=== PATIENT | female | born 1965 | race Caucasian/White ===

== ENCOUNTER → 2025-05-30 12:24 | Outpatient (CLI) | payer OTHER, SELFPAY ==
--- NOTE | 2025-05-30 12:26 | DI.RAD.S_ITS ---
PROCEDURE: XR LUMBAR SPINE MIN 4V INDICATIONS: Right L4-5 radiculopathy TECHNIQUE: 5 views of the lumbar spine were acquired, including bilateral oblique views. COMPARISON: None. FINDINGS: Bones: 5 nonrib-bearing vertebrae are present. There is normal bony alignment. No vertebral body compression fractures. No suspicious bony lesions. Mild to moderate, multilevel degenerative disc disease and lower lumbar facet arthrosis. Soft tissues: Overlying bowel gas pattern is normal. No suspicious soft tissue calcifications. Oblique images: No pars defects. IMPRESSION: Mild to moderate, multilevel degenerative disc disease and lower lumbar facet arthrosis. Dictated by: Srinivas Argueta M.D. on 05/31/2025 at 8:48 Approved by: Srinivas Argueta M.D. on 05/31/2025 at 8:49
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
== END ==
PROVIDERS: PCP Registered Nurse; Referring Provider Physical Medicine & Rehabilitation; Visit Provider Physical Medicine & Rehabilitation
DX: S13.4XXA Sprain of ligaments of cervical spine, initial encounter (principal); M47.812 Spondylosis without myelopathy or radiculopathy, cervical region; M47.26 Other spondylosis with radiculopathy, lumbar region; M51.16 Intervertebral disc disorders with radiculopathy, lumbar region; M50.30 Other cervical disc degeneration, unspecified cervical region; F43.10 Post-traumatic stress disorder, unspecified; Z87.828 Personal history of other (healed) physical injury and trauma
CPT/HCPCS: 72050; 72110

== ENCOUNTER → 2025-06-04 18:33 | Outpatient (CLI) | payer OTHER, SELFPAY ==
--- NOTE | 2025-06-04 18:35 | DI.MRI.S_ITS ---
PROCEDURE: MR LUMBAR SPINE WO CON INDICATIONS: Right L4-5 radiculopathy TECHNIQUE: Noncontrast sagittal T1 spin echo and T2 fast echo, sagittal STIR, and T2 fast spin echo through the lumbar spine. In cases with scoliosis, additional coronal T2 fast spin echo may be performed. COMPARISON: [facility], CR, XR LUMBAR SPINE MIN 4V, 05/30/2025, 12:22. FINDINGS: Image quality: Excellent. Alignment and Curvature: There is normal bony alignment. Bone Marrow: Marrow is of normal overall signal. No acute vertebral body compression fractures. Spinal Cord: Conus medullaris terminates at the L1 level. Visualized cord demonstrates normal signal and size. Paraspinous Soft Tissues: No paravertebral masses. T12-L1: Normal appearance. L1-L2: Normal appearance. L2-L3: Normal appearance. L3-L4: Slight loss of disc signal. Minimal, diffuse disc bulge. Small left foraminal disc protrusion. Mild bilateral facet hypertrophy. No central stenosis. Mild left neural foraminal narrowing. No neural compression. L4-L5: Loss of disc signal. Mild, diffuse disc bulge. Mild bilateral facet hypertrophy. No central stenosis. Mild bilateral neural foraminal narrowing. No neural compression. L5-S1: Disc has a normal appearance. Mild right and moderate left facet hypertrophy. No central stenosis. No neural foraminal narrowing. No neural compression.. IMPRESSION: Multilevel degenerative disc disease. Multilevel facet arthropathy. No severe central canal stenosis. No severe neural foraminal stenosis. No neural compression. Dictated by: Caridad Mari MD, PhD on 06/05/2025 at 11:31 Approved by: Caridad Mari MD, PhD on 06/05/2025 at 11:34
--- NOTE | 2025-06-04 18:35 | DI.MRI.S_ITS ---
PROCEDURE: MR CERVICAL SPINE WO CON INDICATIONS: neck pain TECHNIQUE: Noncontrast sagittal T1 spin echo and T2 fast spin echo, sagittal STIR, foraminal oblique sagittal T2 fast spin echo, and axial gradient echo or T2 fast spin echo through the cervical spine. COMPARISON: [facility], CR, XR CERVICAL SPINE 4V OR 5V, 05/30/2025, 12:22. FINDINGS: Image quality: Mildly degraded by patient motion artifact. Alignment and Curvature: There is normal bony alignment. Bone Marrow: Marrow demonstrates normal overall signal. Spinal Cord: Visualized spinal cord has normal size and signal. No cerebellar tonsillar herniation. Paraspinous Soft Tissues: No paravertebral masses. Prevertebral soft tissues are normal in thickness. C2-C3: Slight loss of disc signal. No central stenosis. No neural foraminal narrowing. No neural compression. C3-C4: Loss of disc signal. Mild, diffuse disc bulge. No central stenosis. No neural foraminal narrowing. No neural compression. C4-C5: Loss of disc signal. Mild, diffuse disc bulge. Mild left uncovertebral joint hypertrophy. No central stenosis. Mild left neural foraminal narrowing. No neural compression. C5-C6: Loss of disc signal and height. Moderate, diffuse disc bulge. Mild left uncovertebral joint hypertrophy. Moderate narrowing of the central canal. Mild left neural foraminal narrowing. No neural compression. C6-C7: Loss of disc signal and height. Moderate, diffuse disc bulge. Mild right uncovertebral joint hypertrophy. Moderate narrowing of the central canal. Mild right neural foraminal narrowing. No neural compression. C7-T1: Normal appearance. IMPRESSION: Multilevel degenerative disc disease. Multilevel uncovertebral arthropathy. No severe central canal stenosis. No severe neural foraminal stenosis. No neural compression. Dictated by: Caridad Mari MD, PhD on 06/05/2025 at 11:28 Approved by: Caridad Mari MD, PhD on 06/05/2025 at 11:31
== END ==
LOC: MRI 18:33
PROVIDERS: PCP Registered Nurse; Referring Provider Physical Medicine & Rehabilitation; Visit Provider Physical Medicine & Rehabilitation
DX: M47.812 Spondylosis without myelopathy or radiculopathy, cervical region (principal); M50.31 Other cervical disc degeneration, high cervical region; M51.16 Intervertebral disc disorders with radiculopathy, lumbar region; M47.26 Other spondylosis with radiculopathy, lumbar region; M47.27 Other spondylosis with radiculopathy, lumbosacral region; Z87.828 Personal history of other (healed) physical injury and trauma
CPT/HCPCS: 72141; 72148